=== PATIENT | female | born 1970 | race Caucasian/White ===

== ENCOUNTER 2022-05-11 11:07 | Outpatient (CLI) | payer BC, SELFPAY ==
[2022-05-12 19:51] LABS: Follicle Stimulating Hormone 24.7 IU/L
== END 2022-05-11 11:08 | disposition home or self-care (01) ==
PROVIDERS: PCP Family Medicine; Visit Provider Obstetrics & Gynecology
DX: N92.1 Excessive and frequent menstruation with irregular cycle (principal)
CPT/HCPCS: 83001; 84443